=== PATIENT | female | born 1955 | race Caucasian/White ===

== ENCOUNTER → 2019-10-21 11:07 | Outpatient (BNVA) | payer MEDICARE, MEDICAID, SELFPAY | PROVIDERS: Family Provider Nurse Practitioner Family; PCP Nurse Practitioner Family; Visit Provider Nurse Practitioner Family | DX: Z79.899 Other long term (current) drug therapy (principal); R53.83 Other fatigue; I10 Essential (primary) hypertension; E55.9 Vitamin D deficiency, unspecified; L30.9 Dermatitis, unspecified; Z86.718 Personal history of other venous thrombosis and embolism; Z12.31 Encounter for screening mammogram for malignant neoplasm of breast; Z12.11 Encounter for screening for malignant neoplasm of colon; Z86.010 Personal history of colon polyps; Z80.0 Family history of malignant neoplasm of digestive organs | CPT/HCPCS: 80053; 80061; 81001; 82306; 83036; 84443; 85025; 87077; 87086; 87186 ==

== ENCOUNTER 2019-11-25 06:19 | Day surgery (SDC) | payer MEDICARE, MEDICAID, SELFPAY ==
[2019-11-24 09:31] VITALS: BMI 38.0
[2019-11-25 06:32] VITALS: BP 168/88; PULSE 64; RESP 18; TEMP 36.2; O2SAT 97
--- NOTE | 2019-11-25 06:45 | ANES.PREANE2 ---
Pre-Anesthetic Assessment Pre-Anesthetic Assessment: Height/Weight: Height 1.68 m Weight 107.048 kg Temp Pulse Resp BP Pulse Ox 97.2 F L 64 18 168/88 97 11/25/19 06:32 11/25/19 06:32 11/25/19 06:32 11/25/19 06:32 11/25/19 06:32 Preop Diagnosis: ABD pain, screening Proposed Procedure: Operation Date: 11/25/19 07:00 Proposed Procedures p EGD/[place] bx 08876 [id number] Z86.010 R10.9(Not Applicable) - Mario Rollins MD s Colonoscopy/possible polypectomy(Not Applicable) - Mario Rollins MD Familial anesthetic complications: na Was Beta Barb taken within 24 hours: N/A Last intake: Intake Last Liquid Date 11/24/19 Last Liquid Time 23:45 Last Solid Date 11/23/19 Last Solid Time 18:00 Last Intake: 23:00 Social: Social History: No alcohol and No tobacco Exam: Pre-Anes Outpt Exam: alert, oriented x 3, clear to auscultation bilaterally and regular rate & rhythm Airway: Submandibular: WNL Cervical ROM: WNL MP: 1 Dentition: False Pulmonary: Pulmonary: None reported CV/HEM: CV/HEM: DVT (2018) : : None reported Hepatic: Hepatic: None reported GI: GI: GERD Metabolic: Metabolic: None reported Musc/skel: Musc/skel: OA/DJD Neuropsych: Neuropsych: Syncope ([address] Mendez and checked out OK) Anesthetic Plan: ASA status: 2 Anesthesia: Anesthesia Evaluation and MAC Risk of > 500 ml blood loss (7ml/kg in children): No PFSH Anesthesia PFSH: Medical History Allergic dermatitis Family history of colon cancer H/O adenomatous polyp of colon History of DVT (deep vein thrombosis) Vitamin D deficiency Surgical History Cervical vertebral fusion H/O abdominoplasty H/O colonoscopy 03/07/16 H/O esophagogastroduodenoscopy 03/07/16 H/O gastric bypass H/O neck surgery History of appendectomy Family History Mother Bleeding disorder bleeds a lot without blood thinners Cancer colon Father Cancer colon CAD (coronary artery disease) Grandfather Cancer colon Daughter Diabetes Denies family history of Anesthesia complication Social History Smoking and tobacco status: current every day smoker Second hand smoke exposure: No Smoking risk assessment/counseling performed?: No Alcohol intake: never Desire information about alcohol rehabilitation?: No Counseling given: No Desire information about substance/drug rehabilitation?: No Counseling given: No Lives independently: Yes Marital status: Single Current occupational status: disabled History of recent travel: No Data Anesthesia Cardiac Studies: No Data to Display
[2019-11-25] MEDS: sodium chloride 0.9% 1,000 ML 30 ML IV (06:50)
--- NOTE | 2019-11-25 06:54 | W.PM.OPSUD ---
Surgery/Procedure H&P Update DATE OF PROCEDURE: November 25, 2019 DATE H&P PERFORMED: 11/10/19 H&P UPDATE INFORMATION: I have reviewed H&P completed within last 30 days, I have examined patient prior to procedure and No changes to prior documentation PREOP DIAGNOSIS: ABD pain, screening PLANNED PROCEDURE: Operation Date: 11/25/19 07:00 Proposed Procedures [place] [id number] Z86.010 R10.9(Not Applicable) - Mario Rollins MD s Colonoscopy/possible polypectomy(Not Applicable) - Mario Rollins MD
[2019-11-25 07:28] VITALS: BP 117/70; PULSE 59; RESP 20; TEMP 36.1; O2SAT 95
--- NOTE | 2019-11-25 07:30 | ANE.PACU2 ---
Inpatient post-anesthesia follow up: Airway intact: Yes Vital signs: Temperature 97.0 F Pulse Rate 59 Respiratory Rate 20 Blood Pressure 117/70 Pulse Oximetry 95 Oxygen Delivery Me thod Room Air Oxygen Flow Rate Fraction of Inspir ed Oxygen Hydration adequate: Yes Nausea and vomiting: No Pain level: 1 Mental status: Baseline
[2019-11-25 07:37] VITALS: BP 121/73; PULSE 60; RESP 20; O2SAT 98
== END 2019-11-25 07:47 | disposition home or self-care (01) ==
PROVIDERS: PCP Nurse Practitioner Family; Visit Provider Surgery
PROC: 0DJ08ZZ Inspection of Upper Intestinal Tract, Via Natural or Artificial Opening Endoscopic (ICD-10-PCS; CPT 43235; principal; 2019-11-25 07:00)
PROC: 0DJD8ZZ Inspection of Lower Intestinal Tract, Via Natural or Artificial Opening Endoscopic (ICD-10-PCS; CPT 45378; 2019-11-25 07:00)
DX: R10.32 Left lower quadrant pain (principal); Z83.71 Family history of colonic polyps; D12.0 Benign neoplasm of cecum; D12.4 Benign neoplasm of descending colon; K57.30 Diverticulosis of large intestine without perforation or abscess without bleeding; K64.8 Other hemorrhoids; K20.9 Esophagitis, unspecified; K44.9 Diaphragmatic hernia without obstruction or gangrene; Z86.718 Personal history of other venous thrombosis and embolism; K21.9 Gastro-esophageal reflux disease without esophagitis; M19.90 Unspecified osteoarthritis, unspecified site; F17.210 Nicotine dependence, cigarettes, uncomplicated; E55.9 Vitamin D deficiency, unspecified; Z82.49 Family history of ischemic heart disease and other diseases of the circulatory system; Z83.3 Family history of diabetes mellitus
CPT/HCPCS: 12345; 43235; 45380; 88305; J2704; J7030

== ENCOUNTER 2019-11-26 14:17 | Outpatient (CLI) | payer MEDICARE, MEDICAID, SELFPAY ==
--- NOTE | 2019-11-26 14:30 | MM_ITS ---
WS: [id number] BILATERAL DIGITAL SCREENING MAMMOGRAPHY WITH CAD CLINICAL INFORMATION: breast cancer screening HISTORY: Screening mammogram. No current complaints. COMPARISON: March 03, 2016 TECHNIQUE: Bilateral CC and MLO views. FINDINGS: Scattered fibroglandular densities bilaterally. No suspicious focal mass, asymmetry, calcifications, or architectural distortion. No evidence of malignancy. Dystrophic and lucent centered calcifications . MM/[place] [id number] IMPRESSION: BI-RADS: 2-Benign FOLLOW UP: 1 Year Follow-up Recommend return to annual screening mammography.
== END 2019-11-26 14:18 | disposition home or self-care (01) ==
PROVIDERS: PCP Nurse Practitioner Family; Visit Provider Nurse Practitioner Family
DX: Z12.31 Encounter for screening mammogram for malignant neoplasm of breast (principal)
CPT/HCPCS: 77067

== ENCOUNTER 2020-01-20 14:58 | Outpatient (CLI) | payer MEDICARE, MEDICAID, SELFPAY ==
--- NOTE | 2020-01-20 15:02 | USCV_ITS ---
Cj Yvonne Age: 64 Gender: F : 1955 Exam Date: 01/20/2020 15:17 Ordering Phys: MILTON Boggs APRN Technologist: Orestes Tom Exam Location: [facility] – [place] Indication: PAIN AND EDEMA HISTORY: Lower extremity swelling. Lower extremity edema. Lower extremity pain. PROCEDURES: Venous duplex imaging was performed in only the left lower extremity. The following venous structures were evaluated: common femoral vein, profunda vein, proximal portion of the greater saphenous vein, superficial femoral vein, and the popliteal vein. In addition, the posterior tibial and peroneal trunk were evaluated. On the left side, the common femoral, superficial femoral, profunda femoral, popliteal, posterior tibial, greater saphenous veins, and the peroneal trunk were identified and interrogated in the standard fashion. These veins were found to be easily compressible with spontaneous blood flow. No evidence of insufficiency or thrombus noted. FINDINGS: Normal 2-D Doppler and augmentation and compressibility throughout the lower extremity venous structures. Additional imaging through the proximal calf veins also reveals no thrombus. Limited evaluation of the greater saphenous vein is patent with no thrombus.. CONCLUSIONS No evidence of left lower extremity DVT. Low Reeves MD (Electronically Signed) Final Date: 20 January 2020 16:59 S
== END 2020-01-20 14:59 | disposition home or self-care (01) ==
LOC: RAD 15:01
PROVIDERS: PCP Nurse Practitioner Family; Visit Provider Nurse Practitioner Family
DX: M79.89 Other specified soft tissue disorders (principal); R60.0 Localized edema; M79.605 Pain in left leg
CPT/HCPCS: 93971

== ENCOUNTER 2020-01-27 11:01 | Emergency (ER) | payer MEDICARE, MEDICAID, SELFPAY ==
[2020-01-27 11:25] VITALS: BP 145/66; PULSE 60; RESP 16; TEMP 36.2; O2SAT 100; BMI 34.9
--- NOTE | 2020-01-27 12:18 | USCV_ITS ---
Yvonne Corona Age: 64 Gender: F : 1955 Exam Date: 01/27/2020 12:45 Ordering Phys: Panchito Oneil DO Technologist: Helder Mendoza Exam Location: [facility] – [place] Indication: SWELLING PROCEDURES: Venous duplex imaging was performed in only the left lower extremity. The following venous structures were evaluated: common femoral vein, profunda vein, proximal portion of the greater saphenous vein, superficial femoral vein, and the popliteal vein. In addition, the posterior tibial and peroneal trunk were evaluated. Serial compression, augmentation maneuvers, and spectral Doppler flow evaluation were performed. FINDINGS: Normal 2-D Doppler and augmentation and compressibility throughout the lower extremity venous structures. Additional imaging through the proximal calf veins also reveals no thrombus. Limited evaluation of the greater saphenous vein is patent with no thrombus. CONCLUSIONS No DVT left lower extremity. Dr. Xiao Taylor DO (Electronically Signed) Final Date: 27 January 2020 13:35 S
--- NOTE | 2020-01-27 12:18 | ECG_ITS ---
[facility] Test Date: 2020-01-27 Pat Name: Yvonne Corona Department: Room: Gender: Female [employer]: : 1955 Requested By: Panchito Powell Order Number: [id number] Augustina MD: Dorothea Moran M.D. Measurements Intervals [place] Rate: 53 P: -25 IA: 160 QRS: 31 QRSD: 90 T: 71 QT: 450 QTc: 423 Interpretive Statements SINUS BRADYCARDIA No previous ECG available for comparison Electronically Signed On 01-27-2020 14:25:26 CDT by Dorothea Moran M.D. [id number]
--- NOTE | 2020-01-27 12:18 | USCV_ITS ---
Yvonne Corona Age: 64 Gender: F : 1955 Exam Date: 01/27/2020 12:54 Ordering Phys: Panchito Oneil DO Technologist: Helder Mendoza [place] [facility] [place]: PAINFUL LIMB Risk Factors: Previous Vascular Surgery: RIGHT LEFT BP: 146.0 / 63.00 BP: 153.0/ 72.00 0 0 Waveform Velocity (cm/s) Velocity (cm/s) Waveform Iliac Prox 98.2 Triphasic Iliac Mid 102.9 Triphasic Iliac Distal 122.9 Triphasic RETAIL AGENT 93.0 Triphasic SFA Prox 87.7 Triphasic SFA Mid 88.2 Triphasic SFA Dist 93.7 Triphasic POP 85.4 Triphasic WELLNESS GUIDE 64.5 Biphasic DPA 42.7 Biphasic SALOME 1.2 FINDINGS Normal resting SALOME on the left side [id number] CONCLUSIONS No evidence of any significant arterial obstruction, based on the above findings. Dr Eric Jacinto MD [facility] (Electronically Signed) Final Date: 27 January 2020 20:57 S
--- NOTE | 2020-01-27 13:47 | ED_ITS ---
HPI - General Adult General: Chief complaint: General Medical Stated complaint: direct admit-[place] Time Seen by Provider: 01/27/20 11:37 History of Present Illness: HPI narrative: 64-year-old female comes in 2 weeks of leg discomfort she had a venous stasis wound on her right lower leg anteriorly that had been weeping she was treated some Keflex she had a reaction that was changed to Bactrim they had her taking Benadryl she is still itching. Today she was seen in the local nurse practitioner clinic and the nurse practitioner was concerned about critical limb ischemia because of the cool foot and difficult time palpating pulses. Patient herself denies any chest pain no fever no shortness of breath and the foot does ache but she does not really have any claudication with it. Patient is not diabetic but she does smoke she has a history of DVTs and is on Eliquis. Onset (ago): day(s) Location: left and lower extremity Radiation: non-radiation Severity: moderate Quality: aching Pain Consistency: intermittent Relieving factors: none Exacerbating factors: none Associated symptoms: Deny chest pain, confusion, cough, diaphoresis, decreased appetite, dyspnea, fevers/chills, headache(s), malaise, nausea, rash, palpitations, seizures, short of breath, syncope, vomiting or weakness Treatments prior to arrival: none Review of Systems Const: Denies: malaise or diaphoresis ENMT: Denies: throat pain, ear or mastoid pain, nasal discharge or nasal congestion Card: Denies: chest pain, palpitations or syncope Resp: Denies: dyspnea GI: Denies: nausea or vomiting : Denies: flank pain, difficulty voiding, dysuria, urinary frequency or urinary urgency Skin/Breast: Denies: rash Neuro: Denies: headache(s) or confusion PFS ED PFSH: Medical History Allergic dermatitis Esophagitis determined by endoscopy (11/25/19) Family history of colon cancer H/O adenomatous polyp of colon History of DVT (deep vein thrombosis) Muscle spasm PVD (peripheral vascular disease) Swelling of left lower extremity Vitamin D deficiency Surgical History Cervical vertebral fusion H/O abdominoplasty H/O colonoscopy (11/25/19) Cecal and descending colon polyp, internal hemorrhoids H/O esophagogastroduodenoscopy (11/25/19) Esophagitis H/O gastric bypass H/O neck surgery History of appendectomy Family History Mother Bleeding disorder bleeds a lot without blood thinners Cancer colon Father Cancer colon CAD (coronary artery disease) Grandfather Cancer colon Daughter Diabetes Denies family history of Anesthesia complication Social History Smoking and tobacco status: current every day smoker Second hand smoke exposure: No Smoking risk assessment/counseling performed?: No Alcohol intake: never Desire information about alcohol rehabilitation?: No Counseling given: No Desire information about substance/drug rehabilitation?: No Counseling given: No Lives independently: Yes Marital status: Single Current occupational status: disabled History of recent travel: No Physical Exam Const: COMMON NORMALS: no acute distress GENERAL APPEARANCE: cooperative and comfortable ORIENTATION/CONSCIOUSNESS: Yes awake, Yes oriented to person, Yes oriented to place and Yes oriented to time HENMT: COMMON NORMALS: normocephalic, atraumatic and hearing grossly normal bilaterally HEAD & SCALP: normocephalic and atraumatic Eye: COMMON NORMALS: Equal, round and reactive pupils present, EOMs intact bilaterally, conjunctivae normal and no scleral icterus CONJUNCTIVA: Yes conjunctivae normal PUPIL: Yes Equal, round and reactive pupils present Neck/C-Spine: COMMON NORMALS: no JVD Resp: COMMON NORMALS: normal respiratory effort, No retractions, No use of accessory muscles and clear to auscultation bilaterally AUSCULTATION: clear to auscultation bilaterally Cardio: COMMON NORMALS: no JVD, regular rate, regular rhythm and No murmurs present (Cardio) RATE: regular rate RHYTHM: regular rhythm GI: COMMON NORMALS: Soft to palpation and No hepatosplenomegaly present AUSCULTATION: Yes normoactive bowel sounds PALPATION: Yes Soft to palpation, No Tenderness to palpation present (GI), No Guarding due to palpation present (GI) and Yes No hepatosplenomegaly present Extremity: NARRATIVE EXTREMITY EXAM: Left leg patient has good capillary refill palpable dorsalis pedis pulse popliteal pulse femoral pulse. Femoral pulses are equal bilaterally. There is mild Primitivo positive Homans sign. I cannot palpate a posterior tibialis pulse. Will get ultrasound there is a chronic venous stasis ulcer changes bilaterally the left lower leg anteriorly is a bit more acute but there is no active infection or cellulitis at this time no weeping. Neuro: SENSORIUM/ORIENTATION: Yes oriented to person, Yes oriented to place and Yes oriented to time Skin: COMMON NORMALS: no rashes or lesions noted GENERAL SKIN EXAM: no rashes or lesions noted Course Vital Signs: Vital signs: Vital Signs Temperature 97.2 F L 01/27/20 11:25 Pulse Rate 50 L 01/27/20 13:50 Respiratory Rate 14 01/27/20 13:50 Blood Pressure 143/72 01/27/20 13:50 Pulse Oximetry 98 01/27/20 13:50 MDM - General Adult MDM Narrative: Medical decision making narrative: discussed Dr. Mcknight and Dr. Carias who had been contacted by MILTON amado. Venous duplex is negative for DVT arterial Doppler shows good blood flow triphasic down to the level of the ankle and biphasic past that we can go ahead and discharge her home we will have her follow-up with Dr. Mcknight. Discharge Plan Discharge Patient Disposition: Home Clinical Impression: Left leg pain, Allergic reaction caused by a drug Condition: Stable Prescriptions: New hydroxyzine HCl 10 mg tablet 10 mg PO Q6H PRN (Reason: itching) Qty: 14 RF: 0 No Action cyclobenzaprine 10 mg tablet 10 mg PO .daily at hs 30 Days Qty: 30 RF: 2 ibuprofen 800 mg tablet 800 mg PO Q8H PRN (Reason: Pain) RF: 0 potassium chloride [Klor-Con M20] 20 mEq tablet,ER particles/crystals 20 meq PO DAILY RF: 0 montelukast 10 mg tablet 10 mg PO DAILY RF: 0 albuterol sulfate [Ventolin HFA] 90 mcg/actuation HFA aerosol inhaler 1 puff INHALATION QID RF: 0 Eliquis 5 mg tablet 5 mg PO DAILY 90 Days Qty: 180 RF: 1 Hold Instructions: Resume on 11/26/19. Protonix 40 mg tablet,delayed release (DR/EC) 40 mg PO DAILY 45 Days Qty: 58 RF: 3 sulfamethoxazole-trimethoprim [Bactrim DS] 800-160 mg tablet 1 tab PO BID RF: 0 furosemide [Lasix] 20 mg tablet 20 mg PO DAILY Qty: 90 RF: 0 cholecalciferol (vitamin D3) 1,250 mcg (50,000 unit) capsule 50,000 unit PO .weekly Qty: 4 RF: 2 diphenhydramine HCl [Allergy (diphenhydramine)] 25 mg capsule 25 mg PO Q6H PRN (Reason: allergy symptoms) 10 Days Qty: 60 RF: 0 amitriptyline 25 mg tablet 25 mg PO BEDTIME RF: 0 cyanocobalamin (vitamin B-12) [Vitamin B-12] 1,000 mcg Tablet 1,000 mcg PO DAILY RF: 0 calcium carbonate [Calcium 600] 600 mg calcium (1,500 mg) Tablet 600 mg PO DAILY RF: 0 Discharge Orders: Discharge Order (Routine); Ordered 01/27/20 Ordered By: Panchito Oneil Referrals: Hernandez Bonilla MD [Physician] - Discharge Diet: Usual diet Discharge Activity: Increase activity as tolerated Discharge Date/Time: 01/27/20 13:50 Coding Level of Care Code ED Shingle Bolt Cutter for Chg Fwd Exam Comprehensive
[2020-01-27 13:50] VITALS: BP 143/72; PULSE 50; RESP 14; O2SAT 98
== END 2020-01-27 13:50 | disposition home or self-care (01) ==
PROVIDERS: Emergency Provider Family Medicine; PCP Nurse Practitioner Family
DX: M79.605 Pain in left leg (principal); T50.905A Adverse effect of unspecified drugs, medicaments and biological substances, initial encounter; Z79.01 Long term (current) use of anticoagulants; I73.9 Peripheral vascular disease, unspecified; F17.210 Nicotine dependence, cigarettes, uncomplicated
CPT/HCPCS: 12345; 93005; 93926; 93971; 99281; 99283

== ENCOUNTER → 2020-07-26 13:34 | Outpatient (BNVA) | payer MEDICARE, MEDICAID, SELFPAY | PROVIDERS: PCP Nurse Practitioner Family; Visit Provider Nurse Practitioner Family | DX: M25.561 Pain in right knee (principal) | CPT/HCPCS: 73562 ==

== ENCOUNTER 2020-07-28 08:11 | Outpatient (CLI) | payer MEDICARE, MEDICAID, SELFPAY ==
--- NOTE | 2020-07-28 08:45 | USCV_ITS ---
Yvonne Corona Age: 65 Gender: F : 1955 Exam Date: 07/28/2020 08:46 Ordering Phys: MILTON Boggs APRN Technologist: Fany Delong Exam Location: [facility] – [place] Indication: RIGHT LEG PAIN HISTORY: Lower extremity pain. PROCEDURES: Venous duplex imaging was performed in only the right lower extremity. The following venous structures were evaluated: common femoral vein, profunda vein, proximal portion of the greater saphenous vein, superficial femoral vein, and the popliteal vein. In addition, the posterior tibial and peroneal trunk were evaluated. FINDINGS: Normal 2-D Doppler and augmentation and compressibility throughout the lower extremity venous structures. Additional imaging through the proximal calf veins also reveals no thrombus. Limited evaluation of the greater saphenous vein is patent with no thrombus.. CONCLUSIONS No evidence of right lower extremity DVT. Low Reeves MD (Electronically Signed) Final Date: 28 July 2020 09:37 S
--- NOTE | 2020-07-28 09:30 | XR_ITS ---
WS: [id number] XR hip RT 2-3V wo/w pel* [id number] REASON FOR EXAM: M25.551 - Pain in right hip FINDINGS: Moderate narrowing of the right hip joint space. Moderate osteophytic spurring of the acetabulum with minor osteophytic spurring of the femoral head. No focal bone lesion. No soft tissue abnormality. XR/XR hip RT 2-3V wo/w pel* [id number] IMPRESSION: Moderate findings of osteoarthritis.
--- NOTE | 2020-07-28 10:00 | XR_ITS ---
WS: [id number] XR knee RT 3V* [id number] REASON FOR EXAM: M25.561 - Pain in right knee FINDINGS: Mild to moderate bony demineralization. The medial and lateral knee joint spaces are relatively well-preserved. Small marginal osteophytes ar e seen both medially and laterally. The patellofemoral joint space appears preserved with small osteophytic spurring of the superior pole of the patella. No focal bone lesion. XR/XR knee RT 3V* [id number] IMPRESSION: Minimal arthropathic change.
== END 2020-07-28 08:12 | disposition home or self-care (01) ==
LOC: RAD 08:20
PROVIDERS: PCP Nurse Practitioner Family; Visit Provider Nurse Practitioner Family
DX: M79.604 Pain in right leg (principal); Z86.718 Personal history of other venous thrombosis and embolism; M25.561 Pain in right knee; M16.11 Unilateral primary osteoarthritis, right hip
CPT/HCPCS: 73502; 73562; 93971

== ENCOUNTER → 2021-03-21 09:34 | Outpatient (BNVA) | payer MEDICARE, MEDICAID, SELFPAY | PROVIDERS: PCP Nurse Practitioner Family; Visit Provider Family Medicine | DX: Z20.822 Contact with and (suspected) exposure to COVID-19 (principal); R06.02 Shortness of breath; R05.9 Cough, unspecified | CPT/HCPCS: 87635 ==

== ENCOUNTER → 2021-10-05 09:00 | Outpatient (BNVA) | payer MEDICARE, MEDICAID, SELFPAY | PROVIDERS: PCP Nurse Practitioner Family; Visit Provider Nurse Practitioner Family | DX: Z00.00 Encounter for general adult medical examination without abnormal findings (principal); Z79.899 Other long term (current) drug therapy; R53.83 Other fatigue | CPT/HCPCS: 80053; 80061; 84439; 84443; 85025; 85651; 86140 ==

== ENCOUNTER → 2022-03-30 15:58 | Outpatient (BNVA) | payer MEDICARE, MEDICAID, SELFPAY | PROVIDERS: Visit Provider Nurse Practitioner | DX: Z79.899 Other long term (current) drug therapy (principal); R22.1 Localized swelling, mass and lump, neck | CPT/HCPCS: 84443 ==

== ENCOUNTER 2022-04-12 06:58 | Outpatient (CLI) | payer MEDICARE, MEDICAID, SELFPAY ==
--- NOTE | 2022-04-12 07:15 | US_ITS ---
WS: [id number] INDICATION: Swelling mass lump in neck TECHNIQUE: Ultrasound soft tissue area of concern. FINDINGS: Ultrasound soft tissue Ultrasound soft tissue area of concern just superior to the thyroid. Normal underlying soft tissue. N o focal abnormalities in this area. If continued concern, recommend further evaluation with contrast- enhanced CT neck. US/US soft tissue head neck [id number] IMPRESSION: No focal abnormalities in the area of concern. Consider contrast-en hanced CT neck in further evaluation.
== END 2022-04-12 06:59 | disposition home or self-care (01) ==
LOC: RAD 06:59
PROVIDERS: Visit Provider Nurse Practitioner
DX: R22.1 Localized swelling, mass and lump, neck (principal)
CPT/HCPCS: 76536

== ENCOUNTER 2022-04-21 08:51 | Outpatient (CLI) | payer MEDICARE, MEDICAID, SELFPAY ==
--- NOTE | 2022-04-21 09:30 | CT_ITS ---
WS: [id number] EXAMINATION: CT neck w con* [id number] REASON FOR EXAM: neck mass COMPARISON: None available. ORDER DATE: 04/21/2022 9:36 AM TOTAL EXAM DLP: 264.[address] scans at [facility] use at least one of these dose optimization techniques: automated e xposure control; mA and/or kV adjustment per patient size (includes targeted exams where dose is matc hed to clinical indication); or iterative reconstruction. Technique: Transaxial computed tomographic images of the neck were obtained after the administration of Omnipaque 350 95 ml intravenously. Multiplanar coronal and sagittal images were reformatted. FINDINGS: There is a hypodense well-circumscribed nodule in the inferior aspect of the left thyroid lobe near t he isthmus measuring 17 x 10 mm. There was no peripheral enhancement to suggest abscess. The remainin g thyroid gland is unremarkable. No other abnormal neck masses are identified. Scattered cervical lym ph nodes are subcentimeter. The submandibular and parotid glands demonstrate normal enhancement bilat erally. The nasopharynx, oropharynx, and hypopharynx are normal. The trachea and esophagus are normal . The vascular structures of the neck are within normal limits. There is normal cervical spine alignment. Intervertebral disc spaces are unremarkable. CT/CT neck w con* [id number] IMPRESSION: Left lower pole thyroid nodule as noted above recommend dedicated thyroid ultra sound to further evaluate using TI RADS criteria to determine need for biopsy .
[2022-04-21 09:35] LABS: Blood Urea Nitrogen 13 mg/dL (8-23); Glomerular Filtration Rate 71.5 mL/min (90-130)
[2022-04-21] MEDS: iohexol 350 mg/mL 500 mL Btl (per mL) IV (09:37)
== END 2022-04-21 08:52 | disposition home or self-care (01) ==
LOC: RAD 08:51
PROVIDERS: PCP Nurse Practitioner Family; Visit Provider Nurse Practitioner
DX: R22.1 Localized swelling, mass and lump, neck (principal)
CPT/HCPCS: 70491; 82565; 84520; Q9967

== ENCOUNTER → 2022-04-24 14:52 | Outpatient (BNVA) | payer MEDICARE, MEDICAID, SELFPAY | PROVIDERS: PCP Nurse Practitioner Family; Visit Provider Nurse Practitioner | DX: R69 Illness, unspecified (principal); J01.90 Acute sinusitis, unspecified | CPT/HCPCS: 87400 ==

== ENCOUNTER → 2022-05-12 14:24 | Outpatient (BNVA) | payer MEDICARE, MEDICAID, SELFPAY | PROVIDERS: PCP Nurse Practitioner Family; Visit Provider Nurse Practitioner | DX: R69 Illness, unspecified (principal); J10.1 Influenza due to other identified influenza virus with other respiratory manifestations | CPT/HCPCS: 87400 ==

== ENCOUNTER 2022-05-19 08:08 | Outpatient (CLI) | payer MEDICARE, MEDICAID, SELFPAY ==
--- NOTE | 2022-05-19 08:45 | US_ITS ---
WS: [id number] Thyroid ultrasound, 05/19/2022 Clinical Data: nodule Comparison: CT neck, 04/21/2022 Findings: The right lobe of thyroid measures 3.4 cm x 1.3 cm x 2.1 cm. The left lobe measures 4.9 cm x 1.8 cm x 1.2 cm. There is a complex nodule in the inferior left thyro id measuring 0.99 x 1.84 x 1.91 cm. The nodule shows a combination of septations and cystic areas. The isthmus measured 0.4 mm. The echotexture of the thyroid is uniform. No nodules, cyst or masses are seen in the right lobe. US/US thyroid [id number] Impression: 1. Complex nodule in the inferior left thyroid with greatest dimension of 1.91 cm. 2. Negative right lobe of the thyroid.
== END 2022-05-19 08:09 | disposition home or self-care (01) ==
PROVIDERS: PCP Nurse Practitioner Family; Visit Provider Nurse Practitioner
DX: E04.1 Nontoxic single thyroid nodule (principal)
CPT/HCPCS: 76536

== ENCOUNTER → 2022-06-30 07:44 | Outpatient (BNVA) | payer MEDICARE, MEDICAID, SELFPAY | PROVIDERS: PCP Nurse Practitioner Family; Referring Provider Nurse Practitioner; Visit Provider Otolaryngology | DX: E04.1 Nontoxic single thyroid nodule (principal); R09.89 Other specified symptoms and signs involving the circulatory and respiratory systems | CPT/HCPCS: 31575; 99204 ==

== ENCOUNTER 2022-08-03 12:30 | Outpatient (CLI) | payer MEDICARE, MEDICAID, SELFPAY ==
--- NOTE | 2022-08-03 13:00 | US_ITS ---
WS: [id number] ULTRASOUND THYROID FNA CLINICAL INFORMATION: thyroid nodule TECHNIQUE: Ultrasound-guided FNA FINDINGS: The procedure including risks, benefits, and complications were discussed with the patient who agreed to proceed. Timeout was performed. Using sterile technique patient was prepped and draped in usual sterile fashion. After 1% lidocaine, using ultrasound guidance, a 25-gauge needle was advanc ed into the LEFT inferior thyroid nodule. 5 passes were made with active aspiration. Pathology was pr esent for slide preparation. No immediate complications. Patient remained in the ultrasound suite 10 minutes postprocedure with intermittent ultrasound to ens ure no hematoma. No hematoma 10 minutes postprocedure. US/US biopsy/FNA thyroid [id number] IMPRESSION: Uncomplicated ultrasound-guided thyroid FNA Cytology is pending.
== END 2022-08-03 12:31 | disposition home or self-care (01) ==
LOC: RAD 12:30
PROVIDERS: PCP Nurse Practitioner Family; Visit Provider Otolaryngology
DX: E04.1 Nontoxic single thyroid nodule (principal)
CPT/HCPCS: 10005; 88173

== ENCOUNTER → 2022-08-29 14:31 | Outpatient (BNVA) | payer MEDICARE, MEDICAID, SELFPAY | PROVIDERS: PCP Nurse Practitioner Family; Visit Provider Otolaryngology | DX: E04.1 Nontoxic single thyroid nodule (principal) | CPT/HCPCS: 99212 ==

== ENCOUNTER → 2022-09-15 09:37 | Outpatient (BNVA) | payer MEDICARE, MEDICAID, SELFPAY | PROVIDERS: PCP Nurse Practitioner Family; Visit Provider Nurse Practitioner | DX: R13.10 Dysphagia, unspecified (principal); E66.9 Obesity, unspecified | CPT/HCPCS: 80053; 84443 ==

== ENCOUNTER 2022-10-11 09:48 | Outpatient (CLI) | payer MEDICARE, MEDICAID, SELFPAY ==
--- NOTE | 2022-10-11 10:30 | FL_ITS ---
WS: [id number] Exam: FL barium swallow modifd [id number] Date/Time of Exam: 10/11/2022 10:13 AM Reason For Exam: R13.10 - Dysphagia, unspecified Fluoroscopy time: 3min [id number] minutes # of spot films: The exam was performed in conjunction with the speech therapy service. The patient experienced significant difficulty in swallowing at the level of the oropharynx when corby sting pudding consistency and solid barium mixture foodstuffs. The patient could not swallow the cesar um pill. The patient had significant disability elevating the tongue to the hard palate to initiate t he swallowing process. The patient tolerated thin liquid and nectar consistency liquid barium foodstu ffs without difficulty. No aspiration or penetration was observed during the exam. FL/FL barium swallow modifd [id number] IMPRESSION: 1. Altered swallowing function at the level of the oropharynx when the patient ingested solid barium mixture foodstuffs as well as a barium tablet. A separate report with findings and recommendations will follow from the speech therapy service.
== END 2022-10-11 09:49 | disposition home or self-care (01) ==
LOC: RAD 09:53
PROVIDERS: PCP Nurse Practitioner Family; Visit Provider Nurse Practitioner
DX: R13.10 Dysphagia, unspecified (principal)
CPT/HCPCS: 74230; 92611

== ENCOUNTER → 2023-04-16 16:06 | Outpatient (BNVA) | payer MEDICARE, MEDICAID, SELFPAY | PROVIDERS: PCP Nurse Practitioner Family; Visit Provider Nurse Practitioner Family | DX: Z79.899 Other long term (current) drug therapy (principal); E55.9 Vitamin D deficiency, unspecified | CPT/HCPCS: 80053; 80061; 82306; 83036; 84443; 85025 ==

== ENCOUNTER 2023-04-18 09:54 | Outpatient (CLI) | payer MEDICARE, MEDICAID, SELFPAY ==
--- NOTE | 2023-04-18 09:55 | MM_ITS ---
WS: [id number] BILATERAL SCREENING DIGITAL TOMOSYNTHESIS MAMMOGRAM WITH CAD HISTORY: SCREENING COMPARISON: 11/26/2019 and 03/03/2016 Bilateral CC and MLO views with tomosynthesis and synthetic mammography submitted. Computer aided det ection analyzed. Breast composition: There are scattered areas of fibroglandular density. No suspicious masses, microc alcifications or architectural distortion. Benign calcifications in each breast. IMPRESSION: MM/[place] [id number] BI-RADS: 2-Benign FOLLOW UP: 1 Year Follow-up
== END 2023-04-18 09:55 | disposition home or self-care (01) ==
LOC: MOBLMAM 10:01
PROVIDERS: PCP Nurse Practitioner Family; Visit Provider Nurse Practitioner Family
DX: Z12.31 Encounter for screening mammogram for malignant neoplasm of breast (principal)
CPT/HCPCS: 77063; 77067

== ENCOUNTER → 2023-05-21 09:35 | Outpatient (BNVA) | payer MEDICARE, MEDICAID, SELFPAY | PROVIDERS: PCP Nurse Practitioner Family; Visit Provider Nurse Practitioner Family | DX: D64.9 Anemia, unspecified (principal); Z79.899 Other long term (current) drug therapy | CPT/HCPCS: 80053; 81003; 82272; 83550; 85025; 87077; 87086; 87184 ==

== ENCOUNTER 2023-09-12 11:17 | Outpatient (CLI) | payer MEDICARE, MEDICAID, SELFPAY ==
--- NOTE | 2023-09-12 12:15 | USCV_ITS ---
Cj Yvonne Age: 68 Gender: F : 1955 Exam Date: 09/12/2023 11:33 Ordering Phys: MILTON Boggs APRN QUALITY ASSURANCE COORDINATOR Technologist: CT Exam Location: [facility] – [place] Indication: HISTORY: PROCEDURES: FINDINGS: hx of dvt, reflux in deep system gsv past mid thigh branches and becomes very tiny/ indistinguishable The reflux time at the common femoral, femoral and popliteal veins on the left side wire 1.4, 3.9 and 3.2 seconds. No significant venous reflux were noted in the greater saphenous and small saphenous vein on the left side. The greater saphenous vein at the distal and below-knee segment where found to be small and and unidentifiable in these regions. No segmental venous reflux were noted in the superficial veins CONCLUSIONS 1. Significant venous reflux of greater than 1000 ms were noted at the common femoral, femoral and popliteal veins on the left side. 2. No significant reflux in the superficial veins. 3. The distal and below-knee segment of the greater saphenous vein on the left side was found to be tapering off. Dr Eric Jacinto MD [facility] (Electronically Signed) Final Date: 12 Sep 2023 21:59 S
== END 2023-09-12 11:18 | disposition home or self-care (01) ==
LOC: RAD 11:17
PROVIDERS: PCP Nurse Practitioner Family; Visit Provider Nurse Practitioner Family
DX: Z86.718 Personal history of other venous thrombosis and embolism (principal); R94.39 Abnormal result of other cardiovascular function study
CPT/HCPCS: 93971

== ENCOUNTER 2023-09-17 09:04 | Outpatient (CLI) | payer MEDICARE, MEDICAID, SELFPAY ==
--- NOTE | 2023-09-17 09:30 | USCV_ITS ---
Yvonne Corona Age: 68 Gender: F : 1955 Exam Date: 09/17/2023 09:24 Ordering Phys: MILTON Boggs APRN Technologist: CT Exam Location: [facility] [place] Indication: le pain Risk Factors: Previous Vascular Surgery: RIGHT LEFT BP: / BP: 132.0/ 81.00 0 Waveform Velocity (cm/s) Velocity (cm/s) Waveform Iliac Prox 183.7 Triphasic Iliac Mid 133.3 Triphasic Iliac Distal 133.3 Triphasic RUBBER MILL OPERATOR 153.0 Triphasic SFA Prox 156.0 Triphasic SFA Mid 111.0 Triphasic SFA Dist 112.0 Triphasic POP 99.0 Triphasic RISK MANAGEMENT ANALYST 116.0 Triphasic DPA 80.0 Triphasic SALOME 1.1 FINDINGS Resting SALOME 1.1 on the left side Mild diffuse plaque on the left side Normal Doppler flow waveforms. CONCLUSIONS 1. Normal resting SALOME of 1.1 suggesting no significant arterial obstruction 2. Minimal plaques in the iliac, femoral and popliteal arteries on the left side. Dr Eric Jacinto MD [facility] (Electronically Signed) Final Date: 17 Sep 2023 20:34 S
== END 2023-09-17 09:05 | disposition home or self-care (01) ==
LOC: RAD 09:05
PROVIDERS: PCP Nurse Practitioner Family; Visit Provider Nurse Practitioner Family
DX: I73.9 Peripheral vascular disease, unspecified (principal)
CPT/HCPCS: 93926

== ENCOUNTER → 2023-10-15 14:27 | Outpatient (BNVA) | payer MEDICARE, MEDICAID, SELFPAY | PROVIDERS: PCP Nurse Practitioner Family; Visit Provider Thoracic Surgery (Cardiothoracic Vascular Surgery) | DX: I87.2 Venous insufficiency (chronic) (peripheral) (principal); F17.210 Nicotine dependence, cigarettes, uncomplicated | CPT/HCPCS: 99203 ==

== ENCOUNTER → 2024-03-14 14:12 | Outpatient (BNVA) | payer MEDICARE, MEDICAID, SELFPAY | PROVIDERS: PCP Nurse Practitioner Family; Visit Provider Nurse Practitioner Family | DX: K59.00 Constipation, unspecified (principal); R10.9 Unspecified abdominal pain; K56.7 Ileus, unspecified | CPT/HCPCS: 74018 ==

== ENCOUNTER 2024-03-14 17:55 | Emergency (ER) | payer MEDICARE, MEDICAID, SELFPAY ==
[2024-03-14 18:06] VITALS: BP 149/85; PULSE 74; RESP 16; TEMP 36.6; O2SAT 99
[2024-03-14 19:00] VITALS: BP 213/133; PULSE 69; RESP 17; O2SAT 95
[2024-03-14 20:00] LABS: Hematocrit 35.1 % (36-47); Mean Corpuscular HGB Conc 29.9 g/dL (30-55); Mean Corpuscular Hemoglobin 23.9 pg (27-33); Mean Platelet Volume 8.9 fL (7.4-10.4); Platelet Count 379 10^3/cmm (157-399); Red Blood Count 4.39 10^6/uL (3.85-5.65); White Blood Count 12.45 10^3/uL (3.29-11.43)
[2024-03-14 20:21] LABS: Anion Gap 13.4 (5-19); Blood Urea Nitrogen 11 mg/dL (8-23); Calcium 8.5 mg/dL (8.5-10.5); Carbon Dioxide 24 mmol/L (22-29); Chloride 108 mmol/L (98-107); Creatinine Clr Calc Pharmacy 87.1651; Glomerular Filtration Rate 99.1 mL/min (90-130); Glucose 121 mg/dL (65-115); Osmolality Calculated 293 mOsm/kg (285-295); Potassium 4.4 mmol/L (3.5-5.1); Sodium 141 mmol/L (136-145)
[2024-03-14 20:35] LABS: Absolute Eosinophils 0.4 10^3/cmm (0.0-0.7); Absolute Segmented Neutrophil 6.3 10/cmm (1.6-7.1); Band Neutrophils Absolute 0.1 10^3/cmm (0.0-1.2); Eosinophils 3 %; Lymphocytes 18 %; Lymphocytes Absolute 5.2 10^3/cmm (1.2-3.4); Monocytes Absolute 0.4 10^3/cmm (0.1-0.6); Segmented Neutrophils 51 %; Slide Review Slide Review Perform; Total Cells Counted 100 (0-100)
[2024-03-14 20:36] LABS: Absolute Neutrophil 6.5 10^3/cmm (1.4-6.5); Platelet Estimate Normal (Normal)
[2024-03-14 20:40] LABS: Alanine Aminotransferase 10 U/L (0-33); Albumin Level 4.3 g/dL (3.5-5.2); Alkaline Phosphatase 125 U/L (35-105); Aspartate Amino Transferase 13 U/L (0-32); C Reactive Protein 6.6 mg/L (0.0-4.9); Globulin 1.7 g/dL (1.3-4.6); Lipase 19 U/L (13-60); Total Bilirubin 0.3 mg/dL (0.15-1.2)
[2024-03-14 21:48] LABS: Bilirubin Urine Negative (Negative); Blood Urine Negative (Negative); Glucose Urine UA Negative (Normal); Ketones Urine Negative (Negative); Leukocyte Esterase Urine 2+ (Negative); Nitrate Urine Positive (Negative); Protein Urine Negative (Negative); Specific Gravity, Urine 1.014 (1.005-1.030); Urine Appearance Cloudy (CLEAR); Urine Color Yellow (Yellow)
[2024-03-14 21:51] LABS: Add Urine Microscopic? YES; Bacteria Urine 4+ /hpf; Hyaline Casts Urine 0-4 /lpf; RBC Urine 0-2 /hpf (0-2); Squamous Epithelial Cell Urine 0-5 /hpf (0-5); WBC Urine 51-100 /hpf (0-5)
[2024-03-14 21:58] LABS: Add Urine Culture? Yes
[2024-03-14 22:12] VITALS: BP 142/57; PULSE 66; RESP 16; O2SAT 93
--- NOTE | 2024-03-14 22:16 | CTR_ITS ---
PROCEDURE INFORMATION: Exam: CT Abdomen And Pelvis With Contrast Exam date and time: 03/14/2024 10:43 PM Age: 69 years old Clinical indication: Abdominal pain; Generalized; Prior surgery; Surgery date: 6+ months; Surgery type: Gastric bypass. Hysterectomy. Appy. Abdomenoplasty. Patient HX: C/O diffuse abd pain that radiates to left flank. ; Additional info: Abd pain, left flank, multiple abd surgeries TECHNIQUE: Imaging protocol: Computed tomography of the abdomen and pelvis with contrast. Radiation optimization: All CT scans at this facility use at least one of these dose optimization techniques: automated exposure control; mA and/or kV adjustment per patient size (includes targeted exams where dose is matched to clinical indication); or iterative reconstruction. Contrast material: OMNI 350; Contrast volume: 100 ml; Contrast route: INTRAVENOUS (IV); COMPARISON: CR XR KUB [id number] 03/14/2024 3:18 PM RADIATION DOSE METRICS: Total DLP (mGy-cm): 1057.56 FINDINGS: Liver: Hepatic steatosis. Gallbladder and biliary ducts: Unremarkable. Pancreas: Unremarkable. Spleen: Unremarkable. Adrenal glands: Unremarkable. Kidneys and ureters: Bilateral simple cortical renal cysts. Stomach and bowel: Postoperative changes of gastric bypass. No mechanical bowel obstruction. Appendix: Appendectomy. Intraperitoneal space: No free air or free fluid. Vasculature: Mild atherosclerotic changes of the aorta and its major branches. IVC filter in place. Lymph nodes: Nonspecific prominent mediastinal lymph nodes measuring up to 9 mm. Urinary bladder: Unremarkable. Reproductive: Hysterectomy. Bones/joints: Osteopenia. L1 vertebral body height loss and L3 superior endplate depression of unknown chronicity. Soft tissues: Lower anterior abdominal wall surgical changes. CT/CT abdomen pelvis w con* [id number] IMPRESSION: No acute abdominopelvic abnormality. COMMENTS: 1. For patients with an IVC filter, recommend assessment for a management plan for the patient's IVC filter. If there is no established management plan, recommend referral to an interventional clinician on a nonemergent basis for evaluation. 2. Consistent with the [employer]'s Incidental Findings Committee white paper (J Am Jerrica Radiol 2018): Any incidental renal lesion less than 1 cm or classified as too small to characterize, or any incidental cystic renal lesion characterized as simple-appearing, is likely benign. No follow-up imaging is recommended for these lesions per consensus recommendations based on imaging criteria.
[2024-03-14] MEDS: ondansetron 2 mg/ML SDV 2 mL 4 MG IVP (22:25)
[2024-03-14 22:28] VITALS: RESP 14; O2SAT 93
[2024-03-14] MEDS: morphine 4 mg/mL SDV 1 mL IVP (22:28)
[2024-03-14] MEDS: levofloxacin-dextrose 5 % 500 MG/100 ML PREMIX 100 MG IV (22:35)
[2024-03-14] MEDS: iohexol 350 mg/mL 500 mL Btl (per mL) IV (22:47)
[2024-03-14 22:57] VITALS: BP 157/73; PULSE 72; O2SAT 94
--- NOTE | 2024-03-14 23:00 | W.ED.ABDPA2 ---
HPI - Abdominal Pain General: Chief Complaint: Abdominal Pain Stated Complaint: ABD Pain Time Seen by Provider: 03/14/24 22:03 History of Present Illness: 69-year-old female with left sided abdominal and flank pain worsening over the last 3 to 4 days. Pain is now constant. She has had some frequency of urine, but no definite hematuria. Urine has looked darker to her. She has been nauseated. No vomiting. No definite blood in the stool. She is on apixaban. Related Data Home Medications Medication Instructions Recorded Confirmed furosemide 20 mg tablet (Lasix) 20 mg PO DAILY 10/15/23 03/14/24 Previous Rx's Medication Instructions Recorded albuterol sulfate 90 mcg/actuation 1 puff inhalation QID PRN 12/20/22 aerosol inhaler (Ventolin HFA) shortness of breath or wheezing #8.5 grams fluticasone propionate 50 1 spray intranasal DAILY PRN 12/20/22 mcg/actuation nasal allergy symptoms #16 grams spray,suspension (Flonase Allergy Relief) ibuprofen 800 mg tablet See Rx Instructions .Route 12/20/22 .COMPLEX #60 tabs loratadine 10 mg capsule 10 mg PO .twice 30 days #60 caps 12/20/22 fluticasone 100 mcg-salmeterol 50 See Rx Instructions .Route 01/11/23 mcg/dose blistr powdr for .COMPLEX #60 blisters inhalation (Advair Diskus) pantoprazole 40 mg tablet,delayed See Rx Instructions .Route 03/20/23 release .COMPLEX #90 tabs clotrimazole-betamethasone 1 1 applic topical BID 4 weeks #45 04/16/23 %-0.05 % topical cream grams ferrous gluconate 324 mg (37.5 mg 324 mg PO DAILY #30 tabs 05/23/23 iron) tablet diphenhydramine HCl 25 mg capsule 25 mg PO Q8H PRN nausea and 07/13/23 (Benadryl) vomiting 30 days #30 caps comp.stocking,knee,long,medium #2 ea 11/14/23 citalopram 20 mg tablet 20 mg PO DAILY 90 days #90 tabs 12/10/23 metformin 500 mg tablet See Rx Instructions .Route 01/18/24 .COMPLEX #60 tabs cyclobenzaprine 10 mg tablet See Rx Instructions .Route 03/12/24 .COMPLEX #30 tabs hydroxyzine HCl 25 mg tablet See Rx Instructions .Route 03/12/24 .COMPLEX #60 tabs amitriptyline 25 mg tablet See Rx Instructions .Route 03/14/24 .COMPLEX #90 tabs apixaban 5 mg tablet (Eliquis) 5 mg PO DAILY 90 days #180 tabs 03/14/24 cholecalciferol (vitamin D3) 1,250 50,000 unit PO .weekly #4 caps 03/14/24 mcg (50,000 unit) capsule hydrocodone 5 mg-acetaminophen 325 1 tab PO Q8H PRN pain #7 tabs 03/15/24 mg tablet levofloxacin 500 mg tablet 500 mg PO DAILY 7 days #7 tabs 03/15/24 ondansetron 4 mg disintegrating 4 mg PO Q6H PRN nausea and 03/15/24 tablet vomiting #14 tabs Allergies Allergy/AdvReac Type Severity Reaction Status Date / Time cephalexin Allergy ALGY-Rash Verified 03/14/24 14:06 Sulfa (Sulfonamide Allergy ALGY-Hives Verified 03/14/24 14:06 Antibiotics) PFS ED PFSH: Medical History (Updated 03/15/24 @ 00:35 by Braulio Marin DO) Ileus Cellulitis of right leg Obesity Itching Anxiety and depression Venous reflux History of DVT (deep vein thrombosis) Cellulitis of left lower leg Elevated alkaline phosphatase level Iron deficiency anemia Anemia Chest wall muscle strain Non-healing skin lesion Dermatitis Thyroid Nodule Varicose veins of both lower extremities Acute bacterial sinusitis Otitis media, chronic, bilateral Vertigo Cervicogenic headache Osteoarthritis of right knee Osteoarthritis of right hip Right hip pain Pain in right leg Contact dermatitis Muscle spasm Swelling of left lower extremity PVD (peripheral vascular disease) Esophagitis determined by endoscopy (11/25/19) Family history of colon cancer H/O adenomatous polyp of colon Breast cancer screening by mammogram Colon cancer screening Vitamin D deficiency Allergic dermatitis Surgical History S/P gastric bypass Hx of hysterectomy H/O neck surgery H/O colonoscopy (11/25/19) Cecal and descending colon polyp, internal hemorrhoids H/O esophagogastroduodenoscopy (11/25/19) Esophagitis H/O gastric bypass History of appendectomy H/O abdominoplasty Cervical vertebral fusion Family History Mother Bleeding disorder bleeds a lot without blood thinners Cancer colon Father Cancer colon CAD (coronary artery disease) Grandfather Cancer colon Daughter Diabetes Denies family history of Anesthesia complication Social History Smoking and tobacco/nicotine status: current every day tobacco/nicotine user cigarettes Packs smoked per day: 0.5 Years cigarettes smoked: 30 Second hand smoke exposure: No Alcohol intake: never Substance/Drug Use: never Lives independently: Yes Marital status: Single Current occupational status: disabled Physical Exam Const: COMMON NORMALS: no acute distress GENERAL APPEARANCE: cooperative; not ill appearing and not frail appearing HENMT: COMMON NORMALS: normocephalic, atraumatic and Normal external nose present HEAD & SCALP: normocephalic and atraumatic FACE & SINUS: normal facial exam and face symmetric NOSE: Normal external nose present Eye: COMMON NORMALS: Equal, round and reactive pupils present and EOMs intact bilaterally PUPIL: Yes Equal, round and reactive pupils present Neck/C-Spine: GENERAL: Yes trachea midline Chest: CHEST: Yes Symmetrical chest wall rise Resp: COMMON NORMALS: normal respiratory effort, No retractions, No use of accessory muscles and clear to auscultation bilaterally AUSCULTATION: clear to auscultation bilaterally Cardio: COMMON NORMALS: regular rate and regular rhythm RATE: regular rate RHYTHM: regular rhythm GI: COMMON NORMALS: Normal to inspection, nondistended, normoactive bowel sounds present : BLADDER/KIDNEY EXAM: Yes CVA tenderness on the left Back/Pelvis: GENERAL BACK: Yes CVA tenderness Extremity: COMMON NORMALS: no pedal edema Neuro: LILY COMA SCALE: document GCS findings Lily coma scale eye opening: Spontaneous Lily coma scale verbal response: Orientated Lily coma scale motor response: Obey commands [place] coma scale total score: 15 SENSORY EXAM: Yes extremities (intact) Psych: COMMON NORMALS: speech normal SPEECH: Yes normal speech Skin: COMMON NORMALS: no rashes or lesions noted GENERAL SKIN EXAM: no rashes or lesions noted Course Vital Signs: Vital signs: Vital Signs Temperature 97.8 F 03/14/24 18:06 Pulse Rate 68 03/15/24 00:59 Respiratory Rate 16 03/15/24 00:59 Blood Pressure 113/69 03/15/24 00:59 Pulse Oximetry 91 03/15/24 00:59 Oxygen Delivery Me thod Room Air 03/14/24 23:30 MDM - Abdominal Pain Medical Decision Making White blood cell count is 12. She is afebrile. Blood pressure improved after pain medication. Urinalysis reveals 51-100 whites. 2+ leukocyte Estrace and 4+ bacteria. CT is negative. Should be treated for UTI/pyelonephritis given her left flank pain. She received IV Levaquin here. Will keep her on Levaquin. Close outpatient follow-up and repeat urinalysis as an outpatient. She knows to return for worsening symptoms. Lab Data 03/14/24 19:55 03/14/24 19:55 Labs/Radiology: Radiology Impressions Abdomen/Pelvis CT 03/14/24 22:16 IMPRESSION: No acute abdominopelvic abnormality. COMMENTS: 1. For patients with an IVC filter, recommend assessment for a management plan for the patient's IVC filter. If there is no established management plan, recommend referral to an interventional clinician on a nonemergent basis for evaluation. 2. Consistent with the [employer]'s Incidental Findings Committee white paper (J Am Jerrica Radiol 2018): Any incidental renal lesion less than 1 cm or classified as too small to characterize, or any incidental cystic renal lesion characterized as simple-appearing, is likely benign. No follow-up imaging is recommended for these lesions per consensus recommendations based on imaging criteria. Laboratory Results WBC 12.45 10^3/uL (3.29-11.43) H 03/14/24 19:55 RBC 4.39 10^6/uL (3.85-5.65) 03/14/24 19:55 Hgb 10.50 g/dL (11.27-16.99) L 03/14/24 19:55 Hct 35.1 % (36-47) L 03/14/24 19:55 MCV 80.0 fl (85-98) L 03/14/24 19:55 MCH 23.9 pg (27-33) L 03/14/24 19:55 MCHC 29.9 g/dL (30-55) L 03/14/24 19:55 RDW 20.0 % (12.1-15.1) H 03/14/24 19:55 Plt Count 379 10^3/cmm (157-399) 03/14/24 19:55 MPV 8.9 fL (7.4-10.4) 03/14/24 19:55 Lymph % (Auto) Not Reportable 03/14/24 19:55 [place] % (Auto) Not Reportable 03/14/24 19:55 Lymph # (Auto) Not Reportable 03/14/24 19:55 [place] # (Auto) Not Reportable 03/14/24 19:55 Total Counted 100 (0-100) 03/14/24 19:55 Atypical Lymphs % 24.0 % (0-5) H 03/14/24 19:55 Absolute Neutrophils 6.5 10^3/cmm (1.4-6.5) 03/14/24 19:55 Segmented Neutrophils 51 % 03/14/24 19:55 Band Neutrophils 1.0 % 03/14/24 19:55 Absolute Lymphocytes 5.2 10^3/cmm (1.2-3.4) H 03/14/24 19:55 Lymphocytes (Manual) 18 % 03/14/24 19:55 Monocytes (Manual) 3.0 % 03/14/24 19:55 Absolute Monocytes 0.4 10^3/cmm (0.1-0.6) 03/14/24 19:55 Eosinophils (Manual) 3 % 03/14/24 19:55 Absolute Eosinophils 0.4 10^3/cmm (0.0-0.7) 03/14/24 19:55 Basophils (Manual) Not Reportable 03/14/24 19:55 Platelet Estimate Normal (Normal) 03/14/24 19:55 Sodium 141 mmol/L (136-145) 03/14/24 19:55 Potassium 4.4 mmol/L (3.5-5.1) 03/14/24 19:55 Chloride 108 mmol/L (98-107) H 03/14/24 19:55 Carbon Dioxide 24 mmol/L (22-29) 03/14/24 19:55 Anion Gap 13.4 (5-19) 03/14/24 19:55 BUN 11 mg/dL (8-23) 03/14/24 19:55 Creatinine 0.6 mg/dL (0.5-0.9) 03/14/24 19:55 GFR Calculation 99.1 mL/min (90-130) 03/14/24 19:55 Glucose 121 mg/dL (65-115) H 03/14/24 19:55 Calculated Osmolality 293 mOsm/kg (285-295) 03/14/24 19:55 Calcium 8.5 mg/dL (8.5-10.5) 03/14/24 19:55 Total Bilirubin 0.3 mg/dL (0.15-1.2) 03/14/24 19:55 Direct Bilirubin 0.20 mg/dL (0.00-0.30) 03/14/24 19:55 AST 13 U/L (0-32) 03/14/24 19:55 ALT 10 U/L (0-33) 03/14/24 19:55 Alkaline Phosphatase 125 U/L (35-105) H 03/14/24 19:55 C-Reactive Protein 6.6 mg/L (0.0-4.9) H 03/14/24 19:55 Total Protein 6.0 g/dL (6.6-8.7) L 03/14/24 19:55 Albumin 4.3 g/dL (3.5-5.2) 03/14/24 19:55 Globulin 1.7 g/dL (1.3-4.6) 03/14/24 19:55 Lipase 19 U/L (13-60) 03/14/24 19:55 Urine Color Yellow (Yellow) 03/14/24 21:28 Urine Appearance Cloudy (CLEAR) A 03/14/24 21: Urine pH 6.0 (5-7) 03/14/24 21: Ur Specific [place] 1.014 (1.005-1.030) 03/14/24 21: Urine Protein Negative (Negative) 03/14/24 21: Urine Glucose (UA) Negative (Normal) 03/14/24 21: Urine Ketones Negative (Negative) 03/14/24 21: Urine Blood Negative (Negative) 03/14/24 21: Urine Nitrate Positive (Negative) A 03/14/24 21: Urine Bilirubin Negative (Negative) 03/14/24 21: Urine Urobilinogen 1.0 mg/dL (Negative) 03/14/24 21: Ur Leukocyte Esterase 2+ (Negative) A 03/14/24 21:28 Urine RBC 0-2 /hpf (0-2) 03/14/24 21:28 Urine WBC 51-100 /hpf (0-5) H 03/14/24 21:28 Ur Squamous Epith Cells 0-5 /hpf (0-5) 03/14/24 21:28 Amorphous Sediment Not Reportable 03/14/24 21:28 Urine Bacteria 4+ /hpf (NONE) H 03/14/24 21:28 Hyaline Casts 0-4 /lpf H 03/14/24 21:28 All radiology interpretation(s) finalized by discharge Discharge Plan Discharge Patient Disposition: Home Clinical Impression: Acute pyelonephritis Condition: Stable Prescriptions: New levofloxacin 500 mg tablet 500 mg PO DAILY 7 Days Qty: 7 0RF hydrocodone-acetaminophen 5-325 mg tablet 1 tab PO Q8H PRN (Reason: pain) Qty: 7 0RF ondansetron 4 mg tablet,disintegrating 4 mg PO Q6H PRN (Reason: nausea and vomiting) Qty: 14 0RF No Action clotrimazole-betamethasone 1-0.05 % cream 1 applic topical BID 28 Days Qty: 45 0RF ferrous gluconate 324 mg (37.5 mg iron) tablet 324 mg PO DAILY Qty: 30 2RF Rx Instructions: Take with Vitamin C diphenhydramine HCl [Benadryl] 25 mg capsule 25 mg PO Q8H PRN (Reason: nausea and vomiting) 30 Days Qty: 30 2RF (DME) comp.stocking,knee,long,medium Misc See Rx Instructions .Route Qty: 2 0RF Rx Instructions: As directed 20-25mmhg Fluzone HighDose Quad 23-24 PF 240 mcg/0.7 mL syringe 0.7 ml IM ONCE Qty: 0.7 0RF pantoprazole 40 mg tablet,delayed release (DR/EC) See Rx Instructions .ROUTE .COMPLEX Qty: 90 1RF Dose Instruction: TAKE 1 TABLET BY MOUTH EVERY DAY Rx Instructions: TAKE 1 TABLET BY MOUTH EVERY DAY furosemide [Lasix] 20 mg tablet 20 mg PO DAILY Rx Instructions: takes 2-3 times weekly citalopram 20 mg tablet 20 mg PO DAILY 90 Days Qty: 90 1RF amitriptyline 25 mg tablet See Rx Instructions .ROUTE .COMPLEX Qty: 90 1RF Dose Instruction: TAKE ONE TABLET BY MOUTH AT BEDTIME Rx Instructions: TAKE ONE TABLET BY MOUTH AT BEDTIME Eliquis 5 mg tablet 5 mg PO DAILY 90 Days Qty: 180 1RF Hold Instructions: Resume on 11/26/19. cholecalciferol (vitamin D3) 1,250 mcg (50,000 unit) capsule 50,000 unit PO .weekly Qty: 4 2RF Rx Instructions: PT STATES SHE TAKES THIS ON THURSDAYS. albuterol sulfate [Ventolin HFA] 90 mcg/actuation HFA aerosol inhaler 1 puff INHALATION QID PRN (Reason: shortness of breath or wheezing) Qty: 8.5 0RF fluticasone propionate [Flonase Allergy Relief] 50 mcg/actuation spray,suspension 1 spray intranasal DAILY PRN (Reason: allergy symptoms) Qty: 16 0RF Rx Instructions: administer into each nostril ibuprofen 800 mg tablet See Rx Instructions .ROUTE .COMPLEX Qty: 60 1RF Dose Instruction: TAKE ONE TABLET BY MOUTH EVERY 8 HOURS NEEDED FOR PAIN Rx Instructions: TAKE ONE TABLET BY MOUTH EVERY 8 HOURS NEEDED FOR PAIN loratadine 10 mg capsule 10 mg PO .twice 30 Days Qty: 60 1RF fluticasone propion-salmeterol [Advair Diskus] 100-50 mcg/dose blister with device See Rx Instructions .ROUTE .COMPLEX Qty: 60 3RF Dose Instruction: USE 1 INHALATIONS BY MOUTH TWICE DAILY Rx Instructions: USE 1 INHALATIONS BY MOUTH TWICE DAILY metformin 500 mg tablet See Rx Instructions .ROUTE .COMPLEX Qty: 60 0RF Dose Instruction: TAKE 1 TABLET BY MOUTH TWICE DAILY Rx Instructions: TAKE 1 TABLET BY MOUTH TWICE DAILY hydroxyzine HCl 25 mg tablet See Rx Instructions .ROUTE .COMPLEX Qty: 60 2RF Dose Instruction: TAKE 1 TABLET BY MOUTH TWICE A DAY Needed FOR ITCHING FOR 30 DAYS; DO not TAKE WITH other antihistamines Rx Instructions: TAKE 1 TABLET BY MOUTH TWICE A DAY Needed FOR ITCHING FOR 30 DAYS; DO not TAKE WITH other antihistamines cyclobenzaprine 10 mg tablet See Rx Instructions .ROUTE .COMPLEX Qty: 30 1RF Dose Instruction: TAKE ONE TABLET BY MOUTH AT BEDTIME FOR 30 DAYS NEEDED FOR PAIN Rx Instructions: TAKE ONE TABLET BY MOUTH AT BEDTIME FOR 30 DAYS NEEDED FOR PAIN Discharge Orders: Discharge ED (Routine); Ordered 11/02/24 Ordered By: Braulio Marin Referrals: MILTON Boggs, TEACHER OF THE EMOTIONALLY DISTURBED [Primary Care Provider] - 1-3 days Patient Instructions: Kidney Infection (ED), Opioid Safety, Pain Management Activity Restrictions/Additional Instructions: Antibiotics as directed. Return for fever greater than 100 despite 2-3 doses of antibiotics, worsening pain despite treatment, vomiting liquids or medications, other concerning symptoms. Coding Level of Care Code ED Master Esthetician for Dayo Bell
[2024-03-14 23:30] VITALS: BP 141/72; PULSE 70; O2SAT 90
[2024-03-14] MEDS: ketorolac 30 mg/mL INJ IVP (23:59)
[2024-03-15 00:42] VITALS: BP 113/69; PULSE 63; O2SAT 92
[2024-03-15 00:59] VITALS: BP 113/69; PULSE 68; RESP 16; O2SAT 91
== END 2024-03-15 00:57 | disposition home or self-care (01) ==
PROVIDERS: Emergency Provider Emergency Medicine; PCP Nurse Practitioner Family
DX: N10 Acute pyelonephritis (principal); Z79.01 Long term (current) use of anticoagulants; Z79.84 Long term (current) use of oral hypoglycemic drugs; F17.210 Nicotine dependence, cigarettes, uncomplicated
CPT/HCPCS: 36415; 74177; 80048; 80076; 81001; 83690; 85007; 85025; 86140; 87077; 87086; 87186; 96365; 96375; 99285; J1885; J1956; J2270; J2405

== ENCOUNTER → 2024-03-27 12:32 | Outpatient (BNVA) | payer MEDICARE, MEDICAID, SELFPAY | PROVIDERS: PCP Nurse Practitioner Family; Referring Provider Nurse Practitioner Family; Visit Provider Student in an Organized Health Care Education/Training Program | DX: K28.9 Gastrojejunal ulcer, unspecified as acute or chronic, without hemorrhage or perforation (principal) | CPT/HCPCS: 99204; 99214 ==

== ENCOUNTER 2024-05-26 09:23 | Day surgery (SDC) | payer MEDICARE, MEDICAID, SELFPAY ==
--- OUTSIDE RECORDS SUMMARY | 2024-03-31 12:46 | XMS_ITS | Patient Health Record ---
Author Name Unknown Organization [facility] Address [address] [place] [address] Support Name Relationship Address Phone Yvonne Corona Guarantor Unknown [phone] Reason For Referral No Information Medications Medication SIG (Take, Route, Frequency, Duration) Notes Start Date End Date Status Trazodone Hydrochloride 50 MG Oral Tablet Trazodone Hydrochloride 50 MG Oral Tablet 03/14/2013 0 Active Diphenhydramine Hydrochloride 25 MG Oral Tablet Diphenhydramine Hydrochloride 25 MG Oral Tablet 03/14/2013 0 Active Omeprazole 20 MG Enteric Coated Tablet Omeprazole 20 MG Enteric Coated Tablet 03/14/2013 0 Active ropinirole 2 MG Oral Tablet ropinirole 2 MG Oral Tablet 03/14/2013 0 Active Temazepam 15 MG Oral Capsule Temazepam 15 MG Oral Capsule 03/14/2013 0 Active Fluconazole 200 MG Oral Tablet Fluconazole 200 MG Oral Tablet 03/14/2013 0 Active Warfarin Sodium 5 MG Oral Tablet Warfarin Sodium 5 MG Oral Tablet 03/14/2013 0 Active Losartan Potassium 50 MG Oral Tablet Losartan Potassium 50 MG Oral Tablet 03/14/2013 0 Active montelukast 10 MG Oral Tablet montelukast 10 MG Oral Tablet 03/14/2013 0 Active Amitriptyline Hydrochloride 25 MG Oral Tablet Amitriptyline Hydrochloride 25 MG Oral Tablet 03/14/2013 0 Active Hydroxyzine Hydrochloride 25 MG Oral Capsule Hydroxyzine Hydrochloride 25 MG Oral Capsule 03/14/2013 0 Active Plan Of Treatment No Information
[2024-05-26 09:41] VITALS: BP 148/68; PULSE 66; RESP 18; TEMP 36.2; O2SAT 97; BMI 33.0
--- NOTE | 2024-05-26 09:51 | ANES.PREANE2 ---
Pre-Anesthetic Assessment Height/Weight: Height 1.78 m Weight 104.326 kg Temp Pulse Resp BP Pulse Ox O2 Del Method 97.1 F L 66 18 148/68 97 Room Air 05/26/24 09:41 05/26/24 09:41 05/26/24 09:41 05/26/24 09:41 05/26/24 09:41 05/26/24 09:41 Preop Diagnosis: screening anastomotic ulcer Operation Date: 05/26/24 10:30 Proposed Procedures p EGD 50986, [id number], G0121, K28.9, Z12.11(Not Applicable) - El Skaggs MD s Colonoscopy(Not Applicable) - El Skaggs MD Familial anesthetic complications: none Was Beta Barb taken within 24 hours: N/A Was Clonidine taken within 24 hours: N/A Last intake: Intake Last Liquid Date 05/25/24 Last Liquid Time 00:00 Last Solid Date 05/25/24 Last Solid Time 07:30 Social Tobacco and No alcohol Exam alert, oriented x 3, clear to auscultation bilaterally and regular rate & rhythm Airway Submandibular: within normal limits Cervical ROM: within normal limits Mallampati: Class II Dentition: false (upper plate) Pulmonary None reported CV/HEM Deep Vein Thrombosis and Hypertension denies CHF takes lasix for BLE swelling uses PRN for LE swelling. None reported Hepatic None reported GI Gastroesophageal Reflux Disease [place] [facility] [place] None reported Neuropsych Anxiety Anesthetic Plan ASA status: 3 Anesthesia: MAC Medications/Allergies Home Medications Medication Instructions Recorded Confirmed Last Taken Type albuterol sulfate 90 mcg/actuation 1 puff inhalation QID PRN 12/20/22 05/22/24 Unknown Rx aerosol inhaler (Ventolin HFA) shortness of breath or wheezing #8.5 grams fluticasone propionate 50 1 spray intranasal DAILY PRN 12/20/22 05/22/24 Unknown Rx mcg/actuation nasal allergy symptoms #16 grams spray,suspension (Flonase Allergy Relief) clotrimazole-betamethasone 1 1 applic topical BID 4 weeks #45 04/16/23 05/22/24 Unknown Rx %-0.05 % topical cream grams ferrous gluconate 324 mg (37.5 mg 324 mg PO DAILY #30 tabs 05/23/23 05/22/24 05/25/24 Rx iron) tablet diphenhydramine HCl 25 mg capsule 25 mg PO Q8H PRN nausea and 07/13/23 05/22/24 05/25/24 Rx (Benadryl) vomiting 30 days #30 caps furosemide 20 mg tablet (Lasix) 20 mg PO DAILY 10/15/23 05/22/24 05/25/24 History comp.stocking,knee,long,medium #2 ea 11/14/23 03/27/24 Unknown Rx apixaban 5 mg tablet (Eliquis) 5 mg PO DAILY 90 days #180 tabs 03/14/24 05/22/24 05/23/24 Rx cholecalciferol (vitamin D3) 1,250 50,000 unit PO .weekly #4 caps 03/14/24 05/22/24 05/25/24 Rx mcg (50,000 unit) capsule ondansetron 4 mg disintegrating 4 mg PO Q6H PRN nausea and 03/15/24 05/22/24 Unknown Rx tablet vomiting #14 tabs mupirocin 2 % topical ointment 1 applic topical BID #15 grams 03/17/24 05/22/24 Unknown Rx citalopram 20 mg tablet 20 mg PO DAILY 90 days #90 tabs 04/17/24 05/22/24 05/25/24 Rx amitriptyline 25 mg tablet 25 mg PO BEDTIME 05/22/24 05/22/24 05/21/24 History cyclobenzaprine 10 mg tablet 10 mg PO BEDTIME PRN Pain 05/22/24 05/22/24 05/25/24 History fluticasone 100 mcg-salmeterol 50 1 inh inhalation BID 05/22/24 05/22/24 Unknown History mcg/dose blistr powdr for inhalation (Advair Diskus) hydroxyzine HCl 25 mg tablet 25 mg PO BID PRN Itching 05/22/24 05/22/24 Unknown History loratadine 10 mg capsule 10 mg PO BID 05/22/24 05/22/24 05/25/24 History Allergies Allergy/AdvReac Type Severity Reaction Status Date / Time cephalexin Allergy ALGY-Rash Verified 05/22/24 08:55 Sulfa (Sulfonamide Allergy ALGY-Hives Verified 05/22/24 08:55 Antibiotics) FORMERLY [facility], 1928–1983 Anesthesia Medical History Abdominal pain Infected cuticle Arthritis of left knee Ileus Cellulitis of right leg Obesity Itching Anxiety and depression Venous reflux History of DVT (deep vein thrombosis) Cellulitis of left lower leg Elevated alkaline phosphatase level Iron deficiency anemia Anemia Chest wall muscle strain Non-healing skin lesion Dermatitis Thyroid Nodule Varicose veins of both lower extremities Acute bacterial sinusitis Otitis media, chronic, bilateral Vertigo Cervicogenic headache Osteoarthritis of right knee Osteoarthritis of right hip Right hip pain Pain in right leg Contact dermatitis Muscle spasm Swelling of left lower extremity PVD (peripheral vascular disease) Esophagitis determined by endoscopy (11/25/19) Family history of colon cancer H/O adenomatous polyp of colon Breast cancer screening by mammogram Colon cancer screening Vitamin D deficiency Allergic dermatitis Surgical History S/P gastric bypass Hx of hysterectomy H/O neck surgery H/O colonoscopy (11/25/19) Cecal and descending colon polyp, internal hemorrhoids H/O esophagogastroduodenoscopy (11/25/19) Esophagitis H/O gastric bypass History of appendectomy H/O abdominoplasty Cervical vertebral fusion Family History Mother Bleeding disorder bleeds a lot without blood thinners Cancer colon Father Cancer colon CAD (coronary artery disease) Grandfather Cancer colon Daughter Diabetes Denies family history of Anesthesia complication Social History Smoking and tobacco/nicotine status: current every day tobacco/nicotine user cigarettes Packs smoked per day: 0.5 Years cigarettes smoked: 30 Second hand smoke exposure: No Alcohol intake: never Substance/Drug Use: never Lives independently: Yes Marital status: Single Current occupational status: disabled Data Anesthesia Cardiac Studies: No Data to Display
[2024-05-26] MEDS: sodium chloride 0.9% 500 ML 15 ML IV (09:52)
--- NOTE | 2024-05-26 10:06 | P.HP_ITS ---
Same Day Surgery H&P Indication for Procedure/HPI DATE OF PROCEDURE: May 26, 2024 CHIEF COMPLAINT/INDICATIONFOR SURGICAL PROCEDURE: screening colonoscopy and marginal ulcer PREOP DIAGNOSIS: screening colonoscopy and marginal ulcer PLANNED PROCEDURE: Operation Date: 05/26/24 10:30 Proposed Procedures p EGD 44135, 89483, G0121, K28.9, Z12.11(Not Applicable) - El Skaggs MD s Colonoscopy(Not Applicable) - El Skaggs MD Medications/Allergies* Home Medications Medication Instructions Recorded Confirmed Type furosemide 20 mg tablet (Lasix) 20 mg PO DAILY 10/15/23 05/22/24 History amitriptyline 25 mg tablet 25 mg PO BEDTIME 05/22/24 05/22/24 History cyclobenzaprine 10 mg tablet 10 mg PO BEDTIME PRN Pain 05/22/24 05/22/24 History fluticasone 100 mcg-salmeterol 50 1 inh inhalation BID 05/22/24 05/22/24 History mcg/dose blistr powdr for inhalation (Advair Diskus) hydroxyzine HCl 25 mg tablet 25 mg PO BID PRN Itching 05/22/24 05/22/24 History loratadine 10 mg capsule 10 mg PO BID 05/22/24 05/22/24 History Allergies/Adverse Reactions Allergy/AdvReac Type Severity Reaction Status Date / Time cephalexin Allergy ALGY-Rash Verified 05/22/24 08:55 Sulfa (Sulfonamide Allergy ALGY-Hives Verified 05/22/24 08:55 Antibiotics) Current Medications: Generic Name Dose Route Start Last Admin Trade Name Freq PRN Reason Stop Dose Admin Sodium Chloride 500 mls @ 15 mls/hr 05/26/24 09:29 05/26/24 09:52 Sodium Chloride 0.9% IV 05/27/24 09:28 15 mls/hr .Q24H PRN Administration COLONOSCOPY FLUIDS Pertinent History/Comorbid Conditions* Medical History (Updated 03/23/24 @ 00:00 by RENETTA Yung) Abdominal pain Infected cuticle Arthritis of left knee Ileus Cellulitis of right leg Obesity Itching Anxiety and depression Venous reflux History of DVT (deep vein thrombosis) Cellulitis of left lower leg Elevated alkaline phosphatase level Iron deficiency anemia Anemia Chest wall muscle strain Non-healing skin lesion Dermatitis Thyroid Nodule Varicose veins of both lower extremities Acute bacterial sinusitis Otitis media, chronic, bilateral Vertigo Cervicogenic headache Osteoarthritis of right knee Osteoarthritis of right hip Right hip pain Pain in right leg Contact dermatitis Muscle spasm Swelling of left lower extremity PVD (peripheral vascular disease) Esophagitis determined by endoscopy (11/25/19) Family history of colon cancer H/O adenomatous polyp of colon Breast cancer screening by mammogram Colon cancer screening Vitamin D deficiency Allergic dermatitis Surgical History (Updated 03/14/24 @ 15:37 by ANDRES España) S/P gastric bypass Hx of hysterectomy H/O neck surgery H/O colonoscopy (11/25/19) Cecal and descending colon polyp, internal hemorrhoids H/O esophagogastroduodenoscopy (11/25/19) Esophagitis H/O gastric bypass History of appendectomy H/O abdominoplasty Cervical vertebral fusion Family History (Updated 11/10/19 @ 09:44 by Catarina Cuevas LPN) Diabetes Daughter CAD (coronary artery disease) Father Bleeding disorder Mother bleeds a lot without blood thinners Cancer Mother colon Father colon Grandfather colon Denies family history of Anesthesia complication Social History Smoking and tobacco/nicotine status: current every day tobacco/nicotine user cigarettes Packs smoked per day: 0.5 Years cigarettes smoked: 30 Second hand smoke exposure: No Alcohol intake: never Substance/Drug Use: never Lives independently: Yes Marital status: Single Current occupational status: disabled Pertinent Exam Findings alert, oriented x 3, clear to auscultation bilaterally, regular rate & rhythm a nd procedure specific exam findings Abdomen soft, nt, nd Recommendations Surgery/Procedure today Coding Level of Care Code Acute Code for Chg Fwd
[2024-05-26 10:42] VITALS: BP 132/71; PULSE 65; RESP 18; TEMP 36.1; O2SAT 97
[2024-05-26 10:47] VITALS: BP 137/74; PULSE 62; RESP 18; O2SAT 94
[2024-05-26 10:57] VITALS: BP 139/69; PULSE 56; RESP 20; O2SAT 94
--- NOTE | 2024-05-26 11:18 | ANE.PACU2 ---
Inpatient post-anesthesia follow up: Airway intact: Yes Vital signs: Temperature 97.0 F Pulse Rate 56 Respiratory Rate 20 Blood Pressure 139/69 Pulse Oximetry 94 Oxygen Delivery Me thod Room Air Oxygen Flow Rate Fraction of Inspir ed Oxygen Hydration adequate: Yes Nausea and vomiting: No Pain level: 1 Mental status: Baseline
== END 2024-05-26 11:18 | disposition home or self-care (01) ==
PROVIDERS: PCP Nurse Practitioner Family; Visit Provider Student in an Organized Health Care Education/Training Program
PROC: 0DJ08ZZ Inspection of Upper Intestinal Tract, Via Natural or Artificial Opening Endoscopic (ICD-10-PCS; principal; 2024-05-26 10:30)
PROC: 0DJD8ZZ Inspection of Lower Intestinal Tract, Via Natural or Artificial Opening Endoscopic (ICD-10-PCS; CPT 45378; 2024-05-26 10:30)
DX: Z12.11 Encounter for screening for malignant neoplasm of colon (principal); K29.50 Unspecified chronic gastritis without bleeding; D12.2 Benign neoplasm of ascending colon; F17.210 Nicotine dependence, cigarettes, uncomplicated; E66.9 Obesity, unspecified; Z68.33 Body mass index [BMI] 33.0-33.9, adult; Z86.718 Personal history of other venous thrombosis and embolism; Z98.84 Bariatric surgery status; I10 Essential (primary) hypertension; F41.9 Anxiety disorder, unspecified
CPT/HCPCS: 43239; 45385; 88305; 88342; J2704; J7040

== ENCOUNTER → 2024-06-06 08:10 | Outpatient (BNVA) | payer MEDICARE, MEDICAID, SELFPAY | PROVIDERS: PCP Nurse Practitioner Family; Visit Provider Student in an Organized Health Care Education/Training Program | DX: R10.84 Generalized abdominal pain (principal); Z09 Encounter for follow-up examination after completed treatment for conditions other than malignant neoplasm | CPT/HCPCS: 99213 ==

== ENCOUNTER → 2024-07-08 08:16 | Outpatient (BNVA) | payer MEDICARE, MEDICAID, SELFPAY | PROVIDERS: PCP Nurse Practitioner Family; Visit Provider Nurse Practitioner Family | DX: E88.810 Metabolic syndrome (principal); Z98.84 Bariatric surgery status; E66.09 Other obesity due to excess calories; Z68.33 Body mass index [BMI] 33.0-33.9, adult; E55.9 Vitamin D deficiency, unspecified; D50.9 Iron deficiency anemia, unspecified; D64.9 Anemia, unspecified | CPT/HCPCS: 80053; 80061; 81003; 82306; 83036; 83550; 84443; 85025; 87086 ==

== ENCOUNTER 2024-07-29 10:15 | Outpatient (CLI) | payer MEDICARE, MEDICAID, SELFPAY ==
--- NOTE | 2024-07-29 10:20 | MM_ITS ---
WS: [id number] BILATERAL 3D TOMOSYNTHESIS DIGITAL SCREENING MAMMOGRAPHY WITH CAD CLINICAL INFORMATION: Z12.31 - Encounter for screening mammogram for malignant ... HISTORY: Screening mammogram. No current complaints. COMPARISON: 2022 TECHNIQUE: Bilateral CC and MLO views. FINDINGS: Scattered fibroglandular densities bilaterally. No suspicious focal mass, asymmetry, calcifications, or architectural distortion. No evidence of malignancy. Benign lucent centered calcification is RIGHT greater than LEFT breast MM/MM [facility] tomosynthesis [id number] IMPRESSION: DENSITY: There are scattered areas of fibroglandular density. BI-RADS: 2 - Benign. FOLLOW UP: 1 Year Follow-up Recommend return to annual screening mammography.
== END 2024-07-29 10:16 | disposition home or self-care (01) ==
PROVIDERS: PCP Nurse Practitioner Family; Visit Provider Nurse Practitioner Family
DX: Z12.31 Encounter for screening mammogram for malignant neoplasm of breast (principal); R92.323 Mammographic fibroglandular density, bilateral breasts; R92.1 Mammographic calcification found on diagnostic imaging of breast
CPT/HCPCS: 77063; 77067

== ENCOUNTER → 2024-12-19 08:58 | Outpatient (BNVA) | payer MEDICARE, MEDICAID, SELFPAY | PROVIDERS: PCP Nurse Practitioner Family; Visit Provider Nurse Practitioner Family | DX: Z98.84 Bariatric surgery status (principal); E55.9 Vitamin D deficiency, unspecified; M19.041 Primary osteoarthritis, right hand; M19.042 Primary osteoarthritis, left hand; D64.9 Anemia, unspecified | CPT/HCPCS: 80053; 82306; 82607; 83550; 84550; 85025; 85651; 86038; 86140; 86200; 86431 ==

== ENCOUNTER 2025-01-13 12:53 | Oncology outpatient (recurring) (ONCR) | payer OTHER, MEDICAID, SELFPAY ==
[2025-01-13] MEDS: iron sucrose 200 MG in sodium chloride 0.9% (100 ml) 100 ML IV (13:55)
[2025-01-13 14:42] VITALS: BP 126/69; PULSE 67; RESP 16; TEMP 36.3; O2SAT 98
== END 2025-02-10 23:59 | disposition home or self-care (01) ==
LOC: ONCMED 12:53
PROVIDERS: PCP Nurse Practitioner Family; Visit Provider Nurse Practitioner Family
DX: D50.9 Iron deficiency anemia, unspecified (principal); Z79.899 Other long term (current) drug therapy
CPT/HCPCS: 96365; J1756

== ENCOUNTER → 2025-02-10 08:35 | Outpatient (BNVA) | payer MEDICARE, MEDICAID, SELFPAY | PROVIDERS: PCP Nurse Practitioner Family; Visit Provider Nurse Practitioner Family | DX: Z98.84 Bariatric surgery status (principal); E55.9 Vitamin D deficiency, unspecified; D64.9 Anemia, unspecified; E61.1 Iron deficiency | CPT/HCPCS: 82310; 82728; 82746; 83735; 83970 ==

== ENCOUNTER 2025-03-02 12:26 | Outpatient (CLI) | payer MEDICARE, MEDICAID, SELFPAY ==
--- NOTE | 2025-03-02 12:33 | XRR_ITS ---
PROCEDURE INFORMATION: Exam: XR Lumbosacral Spine Exam date and time: 03/02/2025 12:43 PM Age: 70 years old Clinical indication: Low back pain; Prior surgery; Surgery date: 6+ months; Surgery type: --appy, hystero, gastric bypass, tummy tuck; Additional info: M54.50 - low back pain, unspecified TECHNIQUE: Imaging protocol: Radiologic exam of the lumbosacral spine. Views: 6 or more views. Including flexion and extension views. COMPARISON: CT abdomen pelvis w con* [id number] 03/14/2024 10:43 PM FINDINGS: Bones/joints: Dextrocurvature of the lumbar spine. No dynamic listhesis on flexion and extension views within the range of motion achieved. Moderate facet arthrosis in the lower lumbar spine. Soft tissues: Unremarkable. Vasculature: IVC filter noted. Surgical clips in the left lower quadrant. Similar mild height loss of L3. No acute fracture. XR/XR lumbar spine 6V w f/e [id number] IMPRESSION: No acute findings.
== END 2025-03-02 12:27 | disposition home or self-care (01) ==
LOC: RAD 12:27
PROVIDERS: PCP Nurse Practitioner Family; Visit Provider Nurse Practitioner Family
DX: M54.50 Low back pain, unspecified (principal); M47.816 Spondylosis without myelopathy or radiculopathy, lumbar region; Z98.84 Bariatric surgery status; Z90.710 Acquired absence of both cervix and uterus
CPT/HCPCS: 72114; 80053; 81003; 85025; 87086

== ENCOUNTER 2025-03-12 13:38 | Outpatient (CLI) | payer MEDICARE, MEDICAID, SELFPAY ==
--- NOTE | 2025-03-12 13:45 | MR_ITS ---
WS: [id number] MRI LUMBAR SPINE NONCONTRAST TECHNIQUE: Sagittal T1, T2 and STIR imaging. Axial T1 and T2 imaging. CLINICAL INFORMATION: M54.50 - Low back pain, unspecified COMPARISON: MRI 2016 FINDINGS: Mild lumbar curve. Acute compression of the L5 vertebral body with mild retropulsion of the posterior superior cortex. Edema in the L5 vertebral body and pedicles. Mild retropulsion of the posterior superior cortex with mild to moderate central canal stenosis and impingement of the LEFT greater than RIGHT subarticular recess. Grade 1 anterolisthesis L4 on L5. L1-L2: Mild annular bulging. Moderate facet arthropathy. Narrowing of the subarticular recess bilaterally. Mild RIGHT greater than LEFT foraminal narrowing. L2-L3: Mild disc bulging with impingement LEFT subarticular recess. Mild central canal stenosis. Moderate facet arthropathy. Mild LEFT greater than RIGHT foraminal narrowing. L3-L4: Mild annular bulging. Narrowing of the subarticular recess bilaterally. Mild central canal stenosis. Moderate facet arthropathy. Mild RIGHT foraminal narrowing. L4-L5: Central disc bulging. Impingement on the LEFT greater than RIGHT subarticular recess. Mild to moderate central canal stenosis. Moderate to advanced facet arthropathy. Foramen are patent. L5-S1: Broad-based central protrusion with slight impingement of traversing S1 nerve roots. Moderate facet arthropathy. RIGHT foraminal protrusion impinges the exiting L5 nerve root with moderate RIGHT foraminal narrowing. Visualized pelvic bony structures: Normal. Paravertebral soft tissues: Normal. Few small RIGHT renal cysts. MR/MR lumbar spine wo con* [id number] IMPRESSION: 1. Acute compression fracture superior endplate L5 with loss of approximate 25 % vertebral body height and edema. Mild retropulsion of the posterior superior cortex with mild to moderate central canal stenosis. Impingement of the LEFT gr eater than RIGHT subarticular recess. 2. Mild disc bulging L5-S1 with slight impingement on the LEFT greater than RI GHT S1 nerve roots. Mild facet arthropathy. 3. Moderate RIGHT L5-S1 foraminal narrowing with a RIGHT foraminal protrusion. 4. Mild chronic compression superior endplate L3.
== END 2025-03-12 13:39 | disposition home or self-care (01) ==
LOC: RAD 13:41
PROVIDERS: PCP Nurse Practitioner Family; Visit Provider Nurse Practitioner Family
DX: M51.17 Intervertebral disc disorders with radiculopathy, lumbosacral region (principal); M51.360 Other intervertebral disc degeneration, lumbar region with discogenic back pain only; M48.061 Spinal stenosis, lumbar region without neurogenic claudication; R29.890 Loss of height; M51.86 Other intervertebral disc disorders, lumbar region; S32.039A Unspecified fracture of third lumbar vertebra, initial encounter for closed fracture; X58.XXXA Exposure to other specified factors, initial encounter; M51.26 Other intervertebral disc displacement, lumbar region; M46.97 Unspecified inflammatory spondylopathy, lumbosacral region; M51.16 Intervertebral disc disorders with radiculopathy, lumbar region; M48.07 Spinal stenosis, lumbosacral region
CPT/HCPCS: 72148

== ENCOUNTER 2025-04-02 13:00 | Outpatient (RCR) | payer MEDICARE, MEDICAID, SELFPAY | END 2025-04-12 23:59 | disposition home or self-care (01) | LOC: WPT 13:00 | PROVIDERS: PCP Nurse Practitioner Family; Visit Provider Nurse Practitioner Family | DX: M54.50 Low back pain, unspecified (principal); G89.29 Other chronic pain | CPT/HCPCS: 97110; 97112; 97530 ==

== ENCOUNTER → 2025-04-07 07:55 | Outpatient (BNVA) | payer MEDICARE, MEDICAID, SELFPAY | PROVIDERS: PCP Nurse Practitioner Family; Visit Provider Orthopaedic Surgery | DX: M54.42 Lumbago with sciatica, left side (principal); M54.41 Lumbago with sciatica, right side; G89.29 Other chronic pain | CPT/HCPCS: 72110; 99203 ==

== ENCOUNTER 2025-04-15 15:09 | Outpatient (RCR) | payer MEDICARE, MEDICAID, SELFPAY | END 2025-05-13 23:59 | disposition home or self-care (01) | LOC: WPT 15:09 | PROVIDERS: PCP Nurse Practitioner Family; Visit Provider Nurse Practitioner Family | DX: M54.50 Low back pain, unspecified (principal); G89.29 Other chronic pain | CPT/HCPCS: 97110; 97112; 97530 ==

== ENCOUNTER 2025-04-16 10:12 | Outpatient (CLI) | payer MEDICARE, MEDICAID, SELFPAY ==
--- NOTE | 2025-04-16 10:15 | MR_ITS ---
WS: [id number] MRI LUMBAR SPINE NONCONTRAST HISTORY: Lumbar pain for 4 weeks. Bilateral leg pain. COMPARISON: 03/12/2025 TECHNIQUE: Sagittal and axial multisequence imaging is submitted. Cervical fusion hardware is noted. Increase in thoracic kyphosis. Mild anterior wedging of T6 by approximately 30%. Increase in thoracic kyphosis and curvature of the lumbar spine. Reidentified is mild anterior wedging of L1. Subacute fracture involving the L5 vertebral body is identified. Fracture was described on 03/12/2025. There is now residual edema along the superior endplate with mild retropulsion. L4 anterolisthesis by 5 mm. Mild concavity involving the superior endplate of L3 is stable. Disc spaces are mildly narrowed and desiccated. Conus terminates normally at L1-2 disc level. L1-L2: Mild annular disc bulging. Moderate bilateral facet arthritis. Moderate bilateral foraminal stenosis and facet arthritis. L2-L3: Mild annular disc bulging, ligamentum flavum and facet arthritis. Disc encroachment upon the ventral thecal sac and subarticular recesses. Disc contacts the traversing L3 nerve roots. Mild bilateral foraminal stenosis. L3-L4: Diffuse annular disc bulging with ligamentum flavum and facet arthritis. Mild narrowing of the subarticular recesses. Mild central and RIGHT foraminal stenosis. L4-L5: Mild unroofing of the disc. Central disc protrusion with moderate ligamentum flavum and facet arthritis. Mild disc impingement upon the subarticular recesses. Moderate central stenosis and mild foraminal stenosis. No change. L5-S1: Mild annular disc bulging with a broad-based central disc protrusion. Disc protrusion is contacting the S1 nerve roots. Moderate facet arthritis. RIGHT foraminal disc protrusion is reidentified contacting the exiting L5 nerve root. Moderate RIGHT foraminal stenosis and mild LEFT foraminal stenosis. Marked atrophy of the psoas muscles. MR/MR lumbar spine wo con* [id number] IMPRESSION: 1. No acute lumbar spine fractures. 2. Subacute fracture at L5 demonstrates significant healing since 03/12/2025. 3. L4 anterolisthesis by 5 mm is stable. 4. Prior compression fractures at T6, L1 and L3 are stable. 5. Moderate bilateral foraminal stenosis at L1-2. 6. Mild central and RIGHT foraminal stenosis at L3-4. 7. Moderate central and mild foraminal stenosis at L4-5 is similar to the prio r study. 8. Broad-based central disc protrusion at L5-S1 contacts the traversing S1 ner ve roots. 9. RIGHT foraminal disc protrusion at L5-S1 contacts the exiting L5 nerve root . Moderate RIGHT and mild foraminal stenosis at L5-S1. 10. Mild foraminal stenosis at L2-3.
== END 2025-04-16 10:13 | disposition home or self-care (01) ==
LOC: RAD 10:13
PROVIDERS: PCP Nurse Practitioner Family; Visit Provider Orthopaedic Surgery
DX: M54.42 Lumbago with sciatica, left side (principal); M54.41 Lumbago with sciatica, right side; G89.29 Other chronic pain
CPT/HCPCS: 72148

== ENCOUNTER → 2025-04-23 14:36 | Outpatient (BNVA) | payer MEDICARE, MEDICAID, SELFPAY | PROVIDERS: PCP Nurse Practitioner Family; Visit Provider Orthopaedic Surgery | DX: M54.9 Dorsalgia, unspecified (principal); Z51.89 Encounter for other specified aftercare | CPT/HCPCS: 99213 ==